=== PATIENT | male | born 1985 | race Caucasian/White ===

== ENCOUNTER 2025-02-20 12:47 | Outpatient (CLI) | payer MEDICAID ==
--- NOTE | 2025-02-20 14:26 | RADIOLOGY REPORT ---
CLINICAL INDICATION: XIPHOID PAIN TECHNIQUE: 3 radiographic views of the sternum were obtained. Comparison: None FINDINGS/IMPRESSION: There is no evidence of acute fracture or dislocation. The visualized joint space is well maintained. The alignment is anatomical. There is no radiopaque foreign body.
--- NOTE | 2025-02-20 14:38 | RADIOLOGY REPORT ---
Exam: US US NON VASCULAR Date: 02/20/2025 01:12 PM Clinical History: LOCALIZED SWELLING, MASS AND LUMP, TRUNK Comparison: None Technique: Targeted sonographic evaluation of the soft tissues of the xiphoid was obtained utilizing grayscale a nd color Doppler imaging. Findings: There is a 1.3 x 1 x 1 cm hypoechoic mass in the Erica xiphoid region,. Percutaneous biopsy recommend ed. IMPRESSION: There is a 1.3 x 1 x 1 cm hypoechoic mass in the Erica xiphoid region,. Percutaneous biopsy recommend ed.
== END 2025-02-20 23:59 | disposition home or self-care (01) ==
LOC: RAD 12:47
PROVIDERS: ATTEND Physician Assistant
DX: R22.2 Localized swelling, mass and lump, trunk (principal); R07.89 Other chest pain
CPT/HCPCS: 71120; 76881